=== PATIENT | male | born 1965 | race Caucasian/White ===

== ENCOUNTER 2020-08-17 16:26 | Emergency (ER) | payer OTHER ==
[~2020-08-17] VITALS: Ht 177.8 cm; Wt 75.0 kg
[2020-08-17 16:37] VITALS: BP 169/93; PULSE 100; TEMP 98.9
== END 2020-08-17 16:48 | disposition left against medical advice (07) ==
LOC: COL.ER 16:26
DX: K64.9 Unspecified hemorrhoids (principal)

== ENCOUNTER 2020-09-27 17:27 | Emergency (ER) | payer OTHER ==
[~2020-09-27] VITALS: Ht 180.3 cm; Wt 72.7 kg
[2020-09-27 19:09] LABS: BASO % 0.2 % (0.0-2.0); EOS # 0.1 (0.0-0.7); EOS % 1.2 % (0-4.0); GRAN % 72.2 % (42.2-75.2); HEMATOCRIT 41.2 % (42.0-52.0); LYMPH # 1.7 (1.2-3.4); LYMPH % 20.4 % (20.0-51.0); MEAN CELL VOLUME 89 fl (80.0-100.0); MEAN CORPUSCULAR HEMOGLOBIN 30 pg (27.0-31.0); MEAN CORPUSCULAR HGB CONC 34 g/dl (33.0-37.0); MEAN PLATELET VOLUME 9.1 fl (7.4-10.4); MONO # 0.5 (0.1-0.6); MONO % 5.8 % (1.7-9.3); PLATELET COUNT 228 K/mm3 (130-400); RED BLOOD COUNT 4.65 M/mm3 (4.20-5.60); REDCELL DISTRIBUTION WIDTH-CV 13.2 % (11.5-14.5)
[2020-09-27 19:28] LABS: ALANINE AMINOTRANSFERASE 20 U/L (4-49); ALKALINE PHOSPHATASE 74 U/L (50-136); ANION GAP 6 mmol/L (7-16); AST,SGOT 32 U/L (15-37); BILIRUBIN,TOTAL 0.4 mg/dL (0.0-1.0); BLOOD UREA NITROGEN 11 mg/dL (9-20); CALCIUM 9.4 mg/dL (8.4-10.2); CARBON DIOXIDE 29 mmol/L (22-30); CHLORIDE 100 mmol/L (98-107); CREATININE, serum 0.73 (0.66-1.25); GLUCOSE 121 mg/dL (74-106); POTASSIUM 3.7 mmol/L (3.4-5.0); SODIUM 135 mmol/L (137-145); TOTAL PROTEIN 7.1 gm/dL (6.4-8.2)
[2020-09-27 19:31] LABS: ACETAMINOPHEN < 10 ug/mL (10-30); ALCOHOL(ethanol),MEDICAL < 10 mg/dL; SALICYLATE < 1.0 mg/dL
[2020-09-27 23:20] LABS: COLLECTION METHOD CLEAN CATCH
[2020-09-27 23:26] LABS: MUCOUS Present /lpf; PH 5 (5-8); SQUAMOUS EPITHELIAL None Seen /hpf; URINE APPEARANCE Clear; URINE BACTERIA None Seen /hpf; URINE BILIRUBIN Negative (NEGATIVE); URINE BLOOD Negative (NEGATIVE); URINE COLOR Yellow; URINE GLUCOSE Negative (NEGATIVE); URINE KETONE Negative (NEGATIVE); URINE LEUKOCYTE ESTERASE Negative (NEGATIVE); URINE NITRATE Negative (NEGATIVE); URINE PROTEIN(semi-quant) Negative (NEGATIVE); URINE RBC 0-2 /hpf; URINE UROBILINOGEN Negative (NEGATIVE)
[2020-09-27 23:35] LABS: TRICYCLIC ANTIDEPRESS URINE POSITIVE
[2020-09-28 03:38] VITALS: TEMP 98.4
[2020-09-28 07:01] VITALS: BP 133/96
[2020-09-28 10:48] VITALS: PULSE 92
== END 2020-09-28 10:48 ==
LOC: COL.ER 17:27
PROVIDERS: Nurse Practitioner
DX: F22 Delusional disorders (principal); I10 Essential (primary) hypertension; F17.200 Nicotine dependence, unspecified, uncomplicated